=== PATIENT | male | born 1995 | race Caucasian/White ===

== ENCOUNTER 2023-10-01 20:36 | Inpatient (IN) | payer MEDICAID ==
[~2023-10-01] VITALS: Ht 182.9 cm; Wt 79.0 kg
[2023-10-01] MEDS ORDERED: ALPRAZolam 0.5mg tablet PO ONE (21:10)
[2023-10-02] MEDS: ketorolac trometh. 30mg/ml inj. IV ONE (00:22)
[2023-10-02] MEDS ORDERED: magnesium hydroxide 30ml (MOM) UD suspension PO PRN (00:45)
[2023-10-02] MEDS ORDERED: magnesium sulf-water 2g/50mL 50 ML IV PRN (00:45)
[2023-10-02] MEDS ORDERED: potassium Cl 40MEQ/1/2NS 520ml 520 ML IV PRN (00:45)
[2023-10-02] MEDS ORDERED: HYDROcodone/acetaminophen 5mg/325mg tablet PO PRN (00:45)
[2023-10-02] MEDS ORDERED: magnesium sulf-water 4G/100mL 100 ML IV PRN (00:45)
[2023-10-02] MEDS ORDERED: magnesium Cl slow-release 64mg tablet PO PRN (00:45)
[2023-10-02] MEDS ORDERED: mag hydrox/Alum hydrox/simeth 30ml oral suspension PO PRN (00:45)
[2023-10-02] MEDS ORDERED: ondansetron/PF 4mg/2ml inj IV PRN (00:45)
[2023-10-02] MEDS ORDERED: potassium Cl 20 mEq SR tablet PO PRN ×2 (00:45)
[2023-10-02] MEDS ORDERED: acetaminophen 325mg tablet PO PRN (00:45)
[2023-10-02] MEDS: normal saline 1000ml 1,000 ML IV SCH (01:04)
[2023-10-02] MEDS: HYDROcodone/acetaminophen 10/325mg tab PO PRN (01:07)
[2023-10-02] MEDS ORDERED: CIPR500T5 PO (01:25)
[2023-10-02] MEDS ORDERED: OXYB5TAB21 PO (01:25)
[2023-10-02] MEDS ORDERED: SENN-367 PO (01:25)
[2023-10-02] MEDS ORDERED: MULT-227 PO (01:25)
[2023-10-02] MEDS ORDERED: ALPR0.5T8 PO (01:25)
[2023-10-02] MEDS ORDERED: HYDR-3965 PO (01:25)
[2023-10-02] MEDS ORDERED: TRAZ-251 PO (01:25)
[2023-10-02] MEDS ORDERED: GABA300C PO (01:25)
[2023-10-02] MEDS ORDERED: BACL20TA PO (01:25)
[2023-10-02] MEDS ORDERED: CRAN500T4 PO (01:25)
[2023-10-02] MEDS: ALPRAZolam 0.5mg tablet PO ONE (01:26)
[2023-10-02 01:38] LABS: BASOPHILS # (AUTO) 0.1 X10'3 (0-0.2); BASOPHILS % (AUTO) 0.7 % (0-1); EOSINOPHILS # (AUTO) 0.2 X10'3 (0-0.9); EOSINOPHILS % (AUTO) 2.2 % (0-6); HEMATOCRIT 44.5 % (42.0-52.0); HEMOGLOBIN 15.1 g/dl (14.0-17.9); LYMPHOCYTES # (AUTO) 1.9 X10'3 (1.1-4.8); LYMPHOCYTES % (AUTO) 23.3 % (21-51); MEAN CORPUSCULAR HEMOGLOBIN 30.9 PG (27.0-31.0); MEAN PLATELET VOLUME 9.8 FL (7.4-10.4); MONOCYTES # (AUTO) 0.6 X10'3 (0-0.9); MONOCYTES % (AUTO) 7.7 % (2-12); NEUTROPHILS # (AUTO) 5.3 X10'3 (1.8-7.7); NEUTROPHILS % (AUTO) 66.1 % (42-75); PLATELET COUNT 226 X10'3 (140-440); RED BLOOD COUNT 4.89 X10'6 (4.70-6.10); RED CELL DISTRIBUTION WIDTH 14.5 % (11.5-14.5)
[2023-10-02 01:44] LABS: BILIRUBIN,URINE NEGATIVE (Neg); CLARITY,URINE CLOUDY (Clear); COLOR,URINE YELLOW (Yellow); GLUCOSE, URINE NEGATIVE (Neg); KETONES,URINE NEGATIVE (Neg); LEUKOCYTE ESTERASE ,URINE LARGE (Neg); NITRITES, URINE NEGATIVE (Neg); OCCULT BLOOD,URINE SMALL (Neg); PH,URINE 6.5 (4.8-8.0); PROTEIN,URINE NEGATIVE (Neg); UROBILINOGEN,URINE 0.2 E.U/dL (0.2-1.0)
[2023-10-02 01:50] LABS: UA COLLECTION TYPE FOLEY CATH
[2023-10-02 01:52] LABS: MUCUS STRANDS FEW /LPF (Neg); SQUAMOUS EPITHELIAL CELL,UR FEW /LPF (FEW)
[2023-10-02 01:53] LABS: BACTERIA,URINE 2+ /HPF (Neg); WBC CLUMPS,URINE MANY /HPF (NEGATIVE); WBC,URINE 50-100 /HPF (0-4)
[2023-10-02 01:54] LABS: YEAST FEW /HPF (NEGATIVE)
[2023-10-02 02:00] VITALS: BP 110/60; PULSE 85; RESP 16; TEMP 98; O2SAT 94
[2023-10-02 02:08] LABS: ALBUMIN 3.7 G/DL (3.4-5.0); ANION GAP 8 (8-16); BLOOD UREA NITROGEN 10 MG/DL (7-18); BUN/CREATININE RATIO 14.7 (10.0-20.0); CALCIUM 9.1 MG/DL (8.5-10.1); CHLORIDE 104 MMOL/L (99-107); CREATININE 0.68 MG/DL (0.60-1.10); GLUCOSE 85 MG/DL (70-104); POTASSIUM 3.9 MMOL/L (3.5-5.1); SODIUM 139 MMOL/L (135-145); TOTAL CARBON DIOXIDE 27.5 MMOL/L (24-32); eCRCL 179 ML/MIN; eGFR > 90 ML/MIN
[2023-10-02 02:50] VITALS: BP 125/85; PULSE 75; RESP 16; TEMP 96.9; O2SAT 96
[2023-10-02 03:55] VITALS: RESP 18; O2SAT 96
[2023-10-02] MEDS: K and/or MAG REPLACEMENT MC SCH (08:00)
[2023-10-02] MEDS ORDERED: docusate sod 100mg capsule PO SCH (08:00)
[2023-10-02] MEDS: heparin, porcine 5000 units/ml vial SQ SCH (08:08)
[2023-10-02] MEDS ORDERED: oxybutynin 5mg tablet PO PRN (08:45)
[2023-10-02] MEDS: sennosides 8.6mg tablet PO ONE ×2 (08:50→10:10)
[2023-10-02 10:00] VITALS: RESP 16
[2023-10-02] MEDS ORDERED: ciprofloxacin 250mg tablet PO SCH (10:00)
[2023-10-02] MEDS: multivitamins, therapeutics tablet PO ONE (10:10)
[2023-10-02] MEDS: gabapentin 300mg capsule PO ONE (10:10)
[2023-10-02] MEDS: cefepime 2g/NS 100ml ADVANTAGE 100 ML IV SCH (10:11)
[2023-10-02] MEDS: bisacodyl 10mg suppository rectal RC PRN (10:40)
[2023-10-02] MEDS: baclofen 10mg tablet PO SCH (11:06)
[2023-10-02] MEDS: mineral oil 133ml enema RC SCH (12:25)
[2023-10-02] MEDS ORDERED: LEVO-65 PO (12:34)
[2023-10-02] MEDS: ALPRAZolam 0.5mg tablet PO PRN (12:45)
[2023-10-02] MEDS: ketorolac tromethamine 15mg/ml inj. IV PRN (13:43)
[2023-10-02 14:43] VITALS: RESP 16
[2023-10-02] MEDS ORDERED: gabapentin 300mg capsule PO SCH (20:00)
[2023-10-02] MEDS ORDERED: sennosides 8.6mg tablet PO SCH (20:00)
[2023-10-02] MEDS ORDERED: traZODone 50mg tablet PO SCH (21:00)
[2023-10-03] MEDS ORDERED: multivitamins, therapeutics tablet PO SCH (08:00)
== END 2023-10-02 17:00 | disposition home or self-care (01) | DRG 463 ==
LOC: ER 20:38 → ED HOLD 10-02 00:49 → EDBEDREQ 10-02 01:58 → ORTHO 4S 10-02 02:40
PROVIDERS: ADMIT Internal Medicine Critical Care Medicine; ATTEND Internal Medicine
DX: N39.0 Urinary tract infection, site not specified (principal); G82.50 Quadriplegia, unspecified; N20.0 Calculus of kidney; E80.6 Other disorders of bilirubin metabolism; N31.2 Flaccid neuropathic bladder, not elsewhere classified
CPT/HCPCS: 36415; 80048; 81001; 83605; 85025; 87040; 87081; 87088; 96374; 99285; A6449; G0378; J0692; J1644; J1885; J7030